=== PATIENT | male | born 1970 | race Caucasian/White ===

== ENCOUNTER 2022-03-27 11:39 | Outpatient (CLI) | payer BC, MEDICARE | END 2022-03-27 11:40 | disposition home or self-care (01) | LOC: SCSMRI 11:39 | PROVIDERS: ATTEND Psychiatry & Neurology Neurology | DX: M79.2 Neuralgia and neuritis, unspecified (principal); R20.9 Unspecified disturbances of skin sensation; R20.2 Paresthesia of skin; M89.9 Disorder of bone, unspecified; M47.812 Spondylosis without myelopathy or radiculopathy, cervical region | CPT/HCPCS: 70553; 72156; 72157 ==